=== PATIENT | male | born 1950 | race African-American/Black ===

== ENCOUNTER 2016-12-09 06:51 | Outpatient (CLI) | payer MEDICAID ==
[2016-12-09 08:13] LABS: HEMATOCRIT 25.2 % (37.9-51.0); HEMOGLOBIN 8.5 g/dL (13.5-17.0); HGB HCT DIFFERENCE 0.3; MEAN CORPUSCULAR HEMOGLOBIN 32.8 pg (27.0-33.4); MEAN CORPUSCULAR HGB CONC 33.7 g/dL (32.0-36.0); MEAN CORPUSCULAR VOLUME 97 fl (80-97); RED BLOOD COUNT 2.58 10^6/uL (4.35-5.55); RED CELL DISTRIBUTION WIDTH 21.7 % (11.5-14.0); WHITE BLOOD COUNT 2.5 10^3/uL (4.0-10.5)
[2016-12-09] MEDS ORDERED: NORMAL SALINE 1000 ML 1,000 ML IV PRN (08:55)
[2016-12-09] MEDS ORDERED: ACETAMINOPHEN 325 MG TABLET PO PRN (08:55)
[2016-12-09] MEDS ORDERED: FUROSEMIDE INJ/PF 20 MG/2 ML SDV IV PRN (08:56)
[2016-12-09] MEDS ORDERED: DIPHENHYDRAMINE HCL 25 MG CAPSULE PO PRN (08:56)
[2016-12-09 13:18] VITALS: BP 106/50
== END 2016-12-09 13:19 | disposition home or self-care (01) ==
LOC: II 06:51 → 5TH 08:09 → II 13:19
PROVIDERS: ATTEND Specialist
DX: D64.9 Anemia, unspecified (principal)
CPT/HCPCS: 86900; 86901; 36415; 36430; 86850; 86920; P9016; J3490 ×2; J1940

== ENCOUNTER → 2017-01-27 | Outpatient (CLI) | payer MEDICAID | LOC: RAD 09:39 | PROVIDERS: ATTEND Specialist | DX: C15.4 Malignant neoplasm of middle third of esophagus (principal) | CPT/HCPCS: 70491; 71260 ==

== ENCOUNTER 2017-03-17 08:27 | Outpatient (CLI) | payer MEDICAID ==
[~2017-03-17 08:27] MED LIST: ACETAMINOPHEN 325 MG TABLET PO PRN; DIPHENHYDRAMINE HCL 25 MG CAPSULE PO PRN; NORMAL SALINE 1000 ML 1,000 ML IV PRN
[2017-03-17 08:54] LABS: HEMATOCRIT 25.8 % (37.9-51.0); HEMOGLOBIN 8.5 g/dL (13.5-17.0); HGB HCT DIFFERENCE -0.3; MEAN CORPUSCULAR HEMOGLOBIN 29.7 pg (27.0-33.4); MEAN CORPUSCULAR VOLUME 90 fl (80-97); RED BLOOD COUNT 2.87 10^6/uL (4.35-5.55); RED CELL DISTRIBUTION WIDTH 20.6 % (11.5-14.0); WHITE BLOOD COUNT 4.2 10^3/uL (4.0-10.5)
[2017-03-17] MEDS ORDERED: FUROSEMIDE INJ/PF 20 MG/2 ML SDV IV PRN (13:06)
[2017-03-17 14:03] VITALS: BP 126/71
== END 2017-03-17 14:22 | disposition home or self-care (01) ==
LOC: II 08:27 → 5TH 08:46 → II 14:22
PROVIDERS: ATTEND Internal Medicine
PROC: 30243N1 Transfusion of Nonautologous Red Blood Cells into Central Vein, Percutaneous Approach (ICD-10-PCS; principal; 2017-03-17)
DX: D64.9 Anemia, unspecified (principal)
CPT/HCPCS: 86900; 86901; 36415; 36430; 86850; 86920; P9016; J3490 ×2

== ENCOUNTER → 2017-03-26 | Outpatient (CLI) | payer MEDICAID ==
--- NOTE | 2017-03-26 10:10 | RADIOLOGY REPORT (SQ) ---
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 Reconstructed coronal and sagittal MPR images reviewed. All images stored on PACS. All CT scanners at this facility use dose modulation, iterative reconstruction, and/or weight based d osing when appropriate to reduce radiation dose to as low as reasonably achievable (ALARA). [facility]: Dose Right [facility]: CareDose [facility]: Dose Right [facility]: Teradose 4D [facility]: [employer] CONTRAST TYPE AND DOSE: 54mL Isovue 370- low osmolar. RENAL FUNCTION: Creatinine 0.4 RADIATION DOSE: 11.68 mGy. LIMITATIONS: None. FINDINGS: SKULL BASE: Intact. MAJOR SALIVARY GLANDS: No solid or cystic masses. No inflammatory changes. LYMPHADENOPATHY: No adenopathy. MUCOSAL MASSES OR ASYMMETRY: No mucosal masses or asymmetry. There is post radiation change, with bl urring of the fat planes along the parapharyngeal fat an around the larynx. Supraglottic laryngeal m ucosal thickening is present with mild thickening of the epiglottis, likely post radiation change. LARYNX/CORDS: Supraglottic laryngeal mucosal thickening is present with mild thickening of the epiglo ttis, stable. This is likely post radiation change. VASCULAR STRUCTURES: The major vessels are patent. There is bilateral carotid bifurcation calcificat ion without proximal internal carotid artery stenosis LUNG APICES: Clear. BONES: Degenerative disc changes at C3-4, C4-5, and C5-6 with vertebral body endplate sclerosis. THYROID: Normal size. No masses. PARANASAL SINUSES: Cephalad with mucous membrane thickening in the dependent portion of the right max illary sinus and left sphenoid sinus OTHER: Right-sided permanent central line tip superior vena cava. IMPRESSION: No cervical adenopathy. Post therapeutic changes in the supraglottic larynx. Mild infl ammatory changes in the left sphenoid and right maxillary sinus TECHNICAL DOCUMENTATION: JOB ID: [id number] Quality ID # [id number]: Final reports with documentation of one or more dose reduction techniques (e.g., Au tomated exposure control, adjustment of the mA and/or kV according to patient size, use of iterative reconstruction technique) 2010 [employer]- All Rights Reserved
--- NOTE | 2017-03-26 10:24 | RADIOLOGY REPORT (SQ) ---
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 CONTRAST TYPE AND DOSE: 54mL Isovue 370- low osmolar. RENAL FUNCTION: Creatinine 0.8 TECHNIQUE: CT scan of the chest performed using helical scanning technique with dynamic intravenous contrast injection. Images reviewed with lung, soft tissue and bone windows. Reconstructed coronal a nd sagittal MPR images reviewed. All images stored on PACS. CT scan of the abdomen and pelvis performed with intravenous and without oral contrastusing helical s shaka technique with dynamic intravenous contrast injection. Images reviewed with lung, soft tissu e and bone windows. Reconstructed coronal and sagittal MPR images reviewed. Delayed images for eval uation of the urinary system also acquired and evaluated. All images stored on PACS. All CT scanners at this facility use dose modulation, iterative reconstruction, and/or weight based d osing when appropriate to reduce radiation dose to as low as reasonably achievable (ALARA). [facility]: Dose Right [facility]: CareDose [facility]: Dose Right [facility]: Teradose 4D [facility]: I AM AT RADIATION DOSE: 6.00; 20.34 mGy. LIMITATIONS: No oral contrast FINDINGS: CHEST: LUNGS AND PLEURA: There is now patchy airspace disease in the right lower lobe worrisome for pneumoni a. Aspiration should be considered. A small bandlike scar or bandlike atelectasis is seen in the anterior left upper lobe image 69, new c ompared to previous studies. There is a small focus of consolidation with air bronchograms in the lingula on axial image 91, uncha nged from 01/27/2017. Patchy airspace disease seen in the right middle lobe and left lower lobe on 01/27/2017 has resolved. No pleural effusions or pneumothorax HILAR AND MEDIASTINAL STRUCTURES: No identified masses or abnormal nodes. HEART AND VASCULAR STRUCTURES: No aneurysm or dissection. No central pulmonary emboli. No pericardi al effusion. Heavy coronary artery calcification HARDWARE: Right-sided permanent central line tip superior vena cava. Gastrostomy tube tip in the gas tric body. THYROID AND OTHER SOFT TISSUES: No masses. No adenopathy. BONES: No significant finding. OTHER: No other significant finding. ABDOMEN AND PELVIS: LIVER: Normal size. No masses or dilated ducts. SPLEEN: Normal size. No focal lesions. PANCREAS: No masses. No significant calcifications. No adjacent inflammation or peripancreatic fluid collections. Pancreatic duct not dilated. GALLBLADDER: Contracted around multiple stones. ADRENAL GLANDS: No significant masses or asymmetry. KIDNEY AND URETERS: No solid masses. Multiple bilateral intrarenal nonobstructive calculi. Multipl e bilateral renal cortical cysts, the largest on the right side is 1 cm in the upper pole, largest on the left is 1.8 cm in the mid pole kidney. No hydronephrosis or hydroureter. AORTA AND VESSELS: No aneurysm. No dissection. Renal arteries, SMA, celiac without stenosis. RETROPERITONEUM: No retroperitoneal adenopathy, hemorrhage or masses. BOWEL AND PERITONEAL CAVITY: No oral contrast. No gross evidence of bowel obstruction. Gastrostomy tube tip in the gastric midbody APPENDIX: Not identified ABDOMINAL WALL: No masses. No hernias. BONES: No significant or acute findings. PELVIS: No other significant finding. IMPRESSION: New airspace disease in the right lower lobe posteriorly worrisome for pneumonia. Aspir ation should be considered. No CT evidence of wide spread metastatic disease to the chest abdomen or pelvis TECHNICAL DOCUMENTATION: JOB ID: [id number] Quality ID # [id number]: Final reports with documentation of one or more dose reduction techniques (e.g., Au tomated exposure control, adjustment of the mA and/or kV according to patient size, use of iterative reconstruction technique) 2010 [employer]- All Rights Reserved
== END ==
LOC: RAD 08:34
PROVIDERS: ATTEND Internal Medicine
DX: C15.4 Malignant neoplasm of middle third of esophagus (principal)
CPT/HCPCS: 70491; 71260; 74177

== ENCOUNTER → 2017-07-03 | Outpatient (CLI) | payer MEDICARE, MEDICAID ==
--- NOTE | 2017-07-03 11:37 | RADIOLOGY REPORT (SQ) ---
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 Reconstructed coronal and sagittal MPR images reviewed. All images stored on PACS. All CT scanners at this facility use dose modulation, iterative reconstruction, and/or weight based d osing when appropriate to reduce radiation dose to as low as reasonably achievable (ALARA). [facility]: Dose Right [facility]: CareDose [facility]: Dose Right [facility]: Teradose 4D [facility]: [email or web address] CONTRAST TYPE AND DOSE: contrast/concentration: Isovue 370.00 mg/ml; Total Contrast Delivered: 55.0 ml; Total Saline Delivered: 56.0 ml RENAL FUNCTION: Creatinine 1.1 RADIATION DOSE: 12.8 mGy . LIMITATIONS: None. FINDINGS: SKULL BASE: Intact. MAJOR SALIVARY GLANDS: No solid or cystic masses. No inflammatory changes. LYMPHADENOPATHY: No adenopathy. MUCOSAL TISSUES AND LARYNX: There is diffuse mucous membrane thickening and soft tissue swelling thro ughout the supraglottic and glottic larynx, similar compared to multiple previous studies. This most likely represents post radiation change. There is also blurring of the fat planes in the neck soft tissues. This is similar compared to previous studies. Some of this edema and engorgement may be related to superior vena cava occlusion. On the accompanyi ng CT chest images, patient was injected in the left antecubital fossae and the left subclavian and b rachiocephalic vein is occluded. There is a right permanent central line with the tip in the superio r vena cava. The superior vena cava is stenotic around the catheter. These findings are similar com pared to previous exams. 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 Athe rosclerotic carotid bifurcation calcification without significant stenosis LUNG APICES: Clear. BONES: No lytic or blastic lesions. Multilevel degenerative changes cervical spine. THYROID: Normal size. No masses. PARANASAL SINUSES: Clear. OTHER: No other significant finding. IMPRESSION: No cervical adenopathy or masses. 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 This appears to be stable over the patient's series of exams since 01/27/2017 TECHNICAL DOCUMENTATION: JOB ID: [id number] Quality ID # [id number]: Final reports with documentation of one or more dose reduction techniques (e.g., Au tomated exposure control, adjustment of the mA and/or kV according to patient size, use of iterative reconstruction technique) 2010 [employer]- All Rights Reserved
--- NOTE | 2017-07-03 11:52 | RADIOLOGY REPORT (SQ) ---
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 RENAL FUNCTION: Creatinine 1.1 TECHNIQUE: CT scan of the chest performed using helical scanning technique with dynamic intravenous contrast injection. Images reviewed with lung, soft tissue and bone windows. Reconstructed coronal a nd sagittal MPR images reviewed. All images stored on PACS. CT scan of the abdomen and pelvis performed with intravenous and with oral contrastusing helical scan brandan technique with dynamic intravenous contrast injection. Images reviewed with lung, soft tissue a nd bone windows. Reconstructed coronal and sagittal MPR images reviewed. Delayed images for evaluat ion of the urinary system also acquired and evaluated. All images stored on PACS. All CT scanners at this facility use dose modulation, iterative reconstruction, and/or weight based d osing when appropriate to reduce radiation dose to as low as reasonably achievable (ALARA). [facility]: Dose Right [facility]: CareDose [facility]: Dose Right [facility]: Teradose 4D [facility]: [employer] RADIATION DOSE: 13 mGy . LIMITATIONS: None. FINDINGS: CHEST: LUNGS AND PLEURA: No opacities, nodules, masses. No pneumothorax. No effusions. HILAR AND MEDIASTINAL STRUCTURES: No identified masses or abnormal nodes. HEART AND VASCULAR STRUCTURES: No aneurysm or dissection. No central pulmonary emboli. No pericardi al effusion. Heavily calcified coronary arteries. Stenosis/occlusion of the left brachiocephalic ve in with collapse of the right IJ and brachiocephalic vein around a permanent right jugular central li ne with effective occlusion of the superior vena cava. This is unchanged from 01/27/2017 CT chest. HARDWARE: Right jugular permanent central line tip superior vena cava THYROID AND OTHER SOFT TISSUES: No masses. No adenopathy. Diffuse edema in the neck soft tissues BONES: Since prior CT 03/26/2017, patient has developed a subacute 25% upper endplate T11 compression. OTHER: No other significant finding. ABDOMEN AND PELVIS: LIVER: Normal size. No masses. No dilated ducts. SPLEEN: Normal size. No focal lesions. PANCREAS: No masses. No significant calcifications. No adjacent inflammation or peripancreatic fluid collections. Pancreatic duct not dilated. GALLBLADDER: Calcified stones in the gallbladder without gallbladder wall thickening or pericholecyst ic fluid. ADRENAL GLANDS: No significant masses or asymmetry. RIGHT KIDNEY AND URETER: No solid masses. Arterial vascular calcification. No hydronephrosis or hydr oureter. 1 cm cyst right lower pole kidney. LEFT KIDNEY AND URETER: No solid masses. Arterial vascular calcification. No hydronephrosis or hydro ureter. 2 cm cyst left mid pole kidney, 1 cm cyst left mid pole kidney, 1.5 cm cyst left lower pole kidney. AORTA AND VESSELS: No aneurysm. No dissection. Very heavily calcified Renal arteries, SMA, celiac ar teries. RETROPERITONEUM: No retroperitoneal adenopathy, hemorrhage or masses. BOWEL AND PERITONEAL CAVITY: No masses or inflammatory changes. No free fluid or peritoneal masses. Gastrostomy tube tip in the antrum of the stomach APPENDIX: Not visualized ABDOMINAL WALL: No masses. No hernias. BONES: No significant or acute findings. OTHER: No other significant finding. IMPRESSION: No CT evidence of metastatic disease to the chest abdomen or pelvis. Since the prior CT exam 03/26/2017, patient has developed a 25% upper endplate compression at T11 TECHNICAL DOCUMENTATION: JOB ID: [id number] Quality ID # [id number]: Final reports with documentation of one or more dose reduction techniques (e.g., Au tomated exposure control, adjustment of the mA and/or kV according to patient size, use of iterative reconstruction technique) 2010 [employer]- All Rights Reserved
== END ==
LOC: RAD 08:11
PROVIDERS: ATTEND Internal Medicine
DX: C15.4 Malignant neoplasm of middle third of esophagus (principal)
CPT/HCPCS: 70491; 71260; 74177